=== PATIENT | male | born 1955 | race Caucasian/White ===

== ENCOUNTER 2023-09-09 13:28 | Inpatient (IN) | payer MEDICARE, MEDICAID ==
[~2023-09-09] VITALS: Ht 188 cm; Wt 98.4 kg
[2023-09-09 15:02] LABS: BASOPHILS % (AUTO) 0.4 % (0.0-2.0); EOSINOPHILS % (AUTO) 2.8 % (1.0-6.0); HEMATOCRIT 42.9 % (41-53); HEMOGLOBIN 14.4 g/dL (13.5-17.5); LYMPHOCYTES # (AUTO) 1.4 K/uL (1.0-4.8); LYMPHOCYTES % (AUTO) 32.4 % (22.0-44.0); MEAN CORPUSCULAR HEMOGLOBIN 29.7 pg (26.0-34.0); MEAN CORPUSCULAR HGB CONC 33.4 G/dL (31.0-37.0); MEAN CORPUSCULAR VOLUME 89 fL (80-100); MONOCYTES # (AUTO) 0.5 K/uL (0.1-1.0); MONOCYTES % (AUTO) 12.1 % (2.0-9.0); NEUTROPHILS # (AUTO) 2.2 K/uL (1.8-7.7); NEUTROPHILS % (AUTO) 52.3 % (40.0-70.0); PLATELET COUNT (AUTO) 238 K/uL (150-450); RED BLOOD CELL COUNT(AUTO) 4.83 MIL/uL (4.50-5.90); RED CELL DISTRIBUTION WIDTH 13.3 % (11.5-14.5); WHITE BLOOD COUNT (AUTO) 4.3 K/uL (4.5-11.0)
[2023-09-09 15:12] LABS: ANION GAP 10 mmol/L (8-16); CALCIUM, TOTAL 9.8 mg/dL (8.8-10.5); CARBON DIOXIDE 29 mmol/L (22-29); CHLORIDE 103 mmol/L (98-107); GLOMERULAR FILTR. RATE CALC > 60 mL/min (>60); GLUCOSE,RANDOM 98 mg/dL (70-110); POTASSIUM 3.5 mmol/L (3.5-5.1); SODIUM SERUM 142 mmol/L (136-145); UREA NITROGEN, BLOOD 16 mg/dL (7-18)
[2023-09-09 15:57] LABS: ALCOHOL, BLOOD (SERUM) < 3 mg/dL (0-10)
[2023-09-09 16:25] LABS: COVID AG,FIA SOURCE NASAL SWAB
[2023-09-09 16:45] LABS: SARS-COV2 (COVID) ANTIGEN,FIA Negative (Negative)
[2023-09-09 16:53] LABS: TROPONIN I-HIGH SENSITIVITY 44 ng/L (<76)
[2023-09-09 17:01] LABS: AMMONIA < 10 umol/L (11-32)
[2023-09-09 19:19] LABS: PH,URINE DRUG SCREEN 5.5 (5.0-8.0)
[2023-09-09 20:07] LABS: ALCOHOL, URINE DRUG SCREEN NEGATIVE (NEGATIVE); AMPHET/METH SCREEN,URINE NEGATIVE (NEGATIVE); BARBITURATE SCREEN, URINE NEGATIVE (NEGATIVE); BENZODIAZEPINES SCREEN,URINE NEGATIVE (NEGATIVE); CANNABINOID SCREEN,URINE POSITIVE (NEGATIVE); COCAINE SCREEN,URINE NEGATIVE (NEGATIVE); METHADONE SCREEN, URINE NEGATIVE (NEGATIVE); OPIATE SCREEN,URINE NEGATIVE (NEGATIVE); PHENCYCLIDINE SCREEN,URINE NEGATIVE (NEGATIVE)
[2023-09-10 09:48] LABS: APPEARANCE,URINE TURBID (CLEAR); COLOR,URINE YELLOW (YELLOW); GLUCOSE, URINE (UA) TRACE mg/dL (NEGATIVE); LEUKOCYTE ESTERASE ,URINE NEGATIVE (NEGATIVE); NITRATE,URINE NEGATIVE (NEGATIVE); OCCULT BLOOD,URINE NEGATIVE (NEGATIVE); PH,URINE 5.5 (5.0-8.0); PROTEIN,URINE 30-70 mg/dL (NEGATIVE); SPECIFIC GRAVITIY, URINE 1.033 (1.003-1.030); UROBILINOGEN,URINE <=1.0 mg/dL (<=1.0)
[2023-09-10 09:50] LABS: BILIRUBIN,URINE SMALL (NEGATIVE)
[2023-09-10 09:59] LABS: AMORPHOUS SEDIMENT,UR Moderate /LPF (None Seen); BACTERIA,URINE Few /HPF (None Seen); CALCIUM OXALATE CRYSTALS,UR Moderate /LPF (None Seen); RBC,URINE 0-2 /HPF (0-2); SQUAMOUS EPITHELIAL CELL,UR Rare /LPF (None Seen); WBC,URINE 0-2 /HPF (0-5)
[2023-09-10] MEDS ORDERED: LORazepam 2 MG TABLET PO PRN (11:15)
[2023-09-11 09:56] LABS: EOSINOPHILS % (AUTO) 4.3 % (1.0-6.0); HEMATOCRIT 44.5 % (41-53); HEMOGLOBIN 14.9 g/dL (13.5-17.5); LYMPHOCYTES # (AUTO) 1.5 K/uL (1.0-4.8); MEAN CORPUSCULAR HEMOGLOBIN 29.8 pg (26.0-34.0); MEAN CORPUSCULAR HGB CONC 33.5 G/dL (31.0-37.0); MEAN CORPUSCULAR VOLUME 89 fL (80-100); MONOCYTES # (AUTO) 0.5 K/uL (0.1-1.0); MONOCYTES % (AUTO) 9.9 % (2.0-9.0); NEUTROPHILS # (AUTO) 2.4 K/uL (1.8-7.7); NEUTROPHILS % (AUTO) 52.8 % (40.0-70.0); PLATELET COUNT (AUTO) 237 K/uL (150-450); RED BLOOD CELL COUNT(AUTO) 5.01 MIL/uL (4.50-5.90); RED CELL DISTRIBUTION WIDTH 13.6 % (11.5-14.5); WHITE BLOOD COUNT (AUTO) 4.6 K/uL (4.5-11.0)
[2023-09-11 10:06] LABS: ANION GAP 8 mmol/L (8-16); CALCIUM, TOTAL 9.9 mg/dL (8.8-10.5); CARBON DIOXIDE 29 mmol/L (22-29); CHLORIDE 105 mmol/L (98-107); CREATININE 0.99 mg/dL (0.60-1.30); GLOMERULAR FILTR. RATE CALC > 60 mL/min (>60); GLUCOSE,RANDOM 89 mg/dL (70-110); POTASSIUM 4.1 mmol/L (3.5-5.1); SODIUM SERUM 142 mmol/L (136-145); UREA NITROGEN, BLOOD 17 mg/dL (7-18)
[2023-09-12] MEDS ORDERED: CALCIUM CARBONATE 500 MG CHEWABLE TABLET CHEW PRN (13:45)
[2023-09-12 15:09] VITALS: BP 105/74; PULSE 96; RESP 18; TEMP 97.2
[2023-09-12] MEDS: ATORVASTATIN CALCIUM 40 MG TABLET PO SCH (17:40)
[2023-09-12] MEDS: PrednisoLONE ACETATE 1% 5 ML OPHTHALMIC SUSPENSION OD SCH (17:42)
[2023-09-12] MEDS: MULTIVITAMINS WITH MINERALS, THERAPEUTIC TABLET PO SCH (17:45)
[2023-09-12] MEDS: TAMSULOSIN HCL 0.4 MG CAPSULE PO SCH (17:45)
[2023-09-12] MEDS: CLOPIDOGREL BISULFATE 75 MG TABLET PO SCH (17:45)
[2023-09-12] MEDS: ASPIRIN 81 MG CHEWABLE TABLET PO SCH (17:45)
[2023-09-12 20:21] VITALS: BP 135/75; PULSE 88; RESP 18; TEMP 97.6; O2SAT 98
[2023-09-12 20:25] VITALS: BP 135/75; PULSE 88; RESP 20; TEMP 97.6
[2023-09-12] MEDS: MELATONIN 5 MG TABLET PO SCH (20:39)
[2023-09-13] MEDS: AmLODIPine BESYLATE 10 MG TABLET PO SCH (09:00)
[2023-09-13 09:51] VITALS: RESP 18
[2023-09-13] MEDS: ESCITALOPRAM OXALATE 10 MG TABLET PO SCH (10:45)
[2023-09-13] MEDS: RisperiDONE 1 MG TABLET PO SCH (17:24)
[2023-09-13 20:15] VITALS: BP 132/76; PULSE 88; RESP 18; TEMP 97.4; O2SAT 98
[2023-09-13] MEDS: MELATONIN 5 MG TABLET PO SCH (21:00)
[2023-09-14 08:32] VITALS: BP 110/69; PULSE 74; RESP 18; TEMP 97.6; O2SAT 98
[2023-09-14] MEDS ORDERED: ESCITALOPRAM OXALATE 10 MG TABLET PO SCH (09:00)
[2023-09-14 21:37] VITALS: BP 119/71; PULSE 67; RESP 17; TEMP 97.5; O2SAT 98
[2023-09-15 09:52] VITALS: BP 130/73; PULSE 71; RESP 18; TEMP 98; O2SAT 97
[2023-09-15 20:48] VITALS: RESP 18
[2023-09-16] MEDS ORDERED: MAG HYDROX/ALUMINUM HYD/SIMETH ES 30 ML SUSPENSION UDCUP PO PRN (06:30)
[2023-09-16] MEDS ORDERED: GuaiFENesin/D-METHORPHAN [SUGAR-FREE] 200-20MG/10 ML SYRUP UDCUP PO PRN (06:30)
[2023-09-16] MEDS ORDERED: DOCUSATE SODIUM 100 MG CAPSULE PO PRN (06:30)
[2023-09-16] MEDS ORDERED: CloNIDine HCL 0.1 MG TABLET PO PRN (06:30)
[2023-09-16] MEDS ORDERED: ONDANSETRON HCL 4 MG TABLET PO PRN (06:30)
[2023-09-16] MEDS ORDERED: ACETAMINOPHEN 325 MG TABLET PO PRN (06:30)
[2023-09-16] MEDS ORDERED: NICOTINE 14 MG/24 HOUR PATCH TD PRN (06:30)
[2023-09-16] MEDS ORDERED: ALBUTEROL SULFATE HFA 90 MCG/PUFF 8 GM INHALER IH PRN (06:30)
[2023-09-16] MEDS ORDERED: PETROLATUM,WHITE 28 GM JELLY TP PRN (06:30)
[2023-09-16] MEDS ORDERED: MAGNESIUM HYDROXIDE SUSPENSION 30 ML UDCUP PO PRN (06:30)
[2023-09-16] MEDS: LOPERAMIDE HCL 2 MG CAPSULE PO PRN (06:35)
[2023-09-16 08:12] VITALS: BP 117/63; PULSE 79; RESP 18; TEMP 97.7; O2SAT 97
[2023-09-16 21:31] VITALS: BP 110/68; PULSE 93; RESP 18; TEMP 97.6; O2SAT 97
[2023-09-16] MEDS: ZOLPIDEM TARTRATE 10 MG TABLET PO PRN (22:34)
[2023-09-17 08:16] VITALS: BP 122/84; PULSE 94; RESP 17; TEMP 96.4; O2SAT 97
[2023-09-17 09:41] LABS: BASOPHILS % (AUTO) 0.5 % (0.0-2.0); EOSINOPHILS % (AUTO) 2.3 % (1.0-6.0); HEMATOCRIT 39.9 % (41-53); HEMOGLOBIN 13.6 g/dL (13.5-17.5); LYMPHOCYTES # (AUTO) 1.2 K/uL (1.0-4.8); MEAN CORPUSCULAR HGB CONC 34.1 G/dL (31.0-37.0); MEAN CORPUSCULAR VOLUME 88 fL (80-100); MONOCYTES # (AUTO) 0.7 K/uL (0.1-1.0); MONOCYTES % (AUTO) 12.4 % (2.0-9.0); NEUTROPHILS # (AUTO) 3.9 K/uL (1.8-7.7); NEUTROPHILS % (AUTO) 64.8 % (40.0-70.0); PLATELET COUNT (AUTO) 163 K/uL (150-450); RED BLOOD CELL COUNT(AUTO) 4.53 MIL/uL (4.50-5.90); RED CELL DISTRIBUTION WIDTH 13.5 % (11.5-14.5)
[2023-09-17 09:50] LABS: HEMOGLOBIN A1C 5.8 % (3.8-5.6)
[2023-09-17 10:06] LABS: ALANINE AMINOTRANSFERASE 20 U/L (12-78); ALBUMIN 2.8 g/dL (3.4-5.0); ALKALINE PHOSPHATASE 71 U/L (46-116); ANION GAP 9 mmol/L (8-16); ASPARTATE AMINOTRANSFERASE 20 U/L (15-37); BILIRUBIN,TOTAL 0.9 mg/dL (0.1-1.0); CALCIUM, TOTAL 9.5 mg/dL (8.8-10.5); CARBON DIOXIDE 30 mmol/L (22-29); CHLORIDE 103 mmol/L (98-107); CREATININE 1.04 mg/dL (0.60-1.30); GLOMERULAR FILTR. RATE CALC > 60 mL/min (>60); GLUCOSE,RANDOM 103 mg/dL (70-110); POTASSIUM 3.7 mmol/L (3.5-5.1); SODIUM SERUM 142 mmol/L (136-145); THYROID STIMULATING HORMONE 4.44 uIU/mL (0.36-3.74); TOTAL PROTEIN, SERUM 6.4 g/dL (6.4-8.2); UREA NITROGEN, BLOOD 12 mg/dL (7-18)
[2023-09-17 23:32] VITALS: BP 121/64; PULSE 74; RESP 18; TEMP 97.5; O2SAT 96
[2023-09-18 08:47] VITALS: BP 122/73; PULSE 75; RESP 17; TEMP 98; O2SAT 96
[2023-09-18 20:01] VITALS: RESP 18; TEMP 97.1
[2023-09-18 20:17] VITALS: RESP 18
[2023-09-19 09:36] VITALS: BP 113/54; PULSE 64; RESP 19; TEMP 97.6
[2023-09-19] MEDS: ERGOCALCIFEROL (VIT D2) 50,000 UNITS [1,250 MCG] CAPSULE PO SCH (09:47)
[2023-09-19] MEDS: QUEtiapine FUMARATE 100 MG TABLET PO PRN (12:26)
[2023-09-19] MEDS: IBUPROFEN 400 MG TABLET PO PRN (12:26)
[2023-09-19 20:35] VITALS: BP 121/77; PULSE 76; RESP 18; TEMP 98.1; O2SAT 98
[2023-09-20 07:43] LABS: ANION GAP 8 mmol/L (8-16); CALCIUM, TOTAL 9.5 mg/dL (8.8-10.5); CARBON DIOXIDE 30 mmol/L (22-29); CHLORIDE 103 mmol/L (98-107); CHOL/HDL RATIO 2.4 (4.2-7.3); CHOLESTEROL 104 mg/dL (131-200); CREATININE 0.95 mg/dL (0.60-1.30); GLOMERULAR FILTR. RATE CALC > 60 mL/min (>60); GLUCOSE,RANDOM 82 mg/dL (70-110); HDL CHOLESTEROL 44 mg/dL (40-60); LDL CHOL (CALC.) 44 mg/dL (0-130); POTASSIUM 3.4 mmol/L (3.5-5.1); SODIUM SERUM 141 mmol/L (136-145); TRIGLYCERIDES 81 mg/dL (15-150); UREA NITROGEN, BLOOD 14 mg/dL (7-18)
[2023-09-20 08:15] VITALS: BP 111/58; PULSE 67; RESP 17; TEMP 97.7; O2SAT 100
[2023-09-20 21:35] VITALS: BP 137/64; PULSE 80; RESP 18; TEMP 97.8; O2SAT 97
[2023-09-21 08:10] VITALS: BP 118/65; PULSE 79; RESP 17; TEMP 98.3; O2SAT 96
[2023-09-21 20:05] VITALS: BP 121/77; PULSE 70; RESP 18; TEMP 97.9; O2SAT 97
[2023-09-22 08:51] VITALS: BP 108/60; PULSE 95; RESP 17; TEMP 97.8; O2SAT 99
[2023-09-22 20:36] VITALS: RESP 18
[2023-09-23 08:33] VITALS: BP 114/64; PULSE 62; RESP 18; TEMP 97.8; O2SAT 98
[2023-09-23 20:12] VITALS: BP 112/77; PULSE 60; RESP 18; TEMP 98.1; O2SAT 98
[2023-09-24 08:35] VITALS: BP 96/55; PULSE 63; RESP 18; TEMP 97.8; O2SAT 97
[2023-09-24 20:35] VITALS: BP 106/62; PULSE 85; RESP 18; TEMP 97.7; O2SAT 97
[2023-09-24 23:15] VITALS: RESP 18
[2023-09-25 09:54] VITALS: BP 106/58; PULSE 70; RESP 17; TEMP 97.2; O2SAT 98
[2023-09-25 20:12] VITALS: BP 105/70; PULSE 74; RESP 18; TEMP 97.1; O2SAT 99
[2023-09-26 09:38] VITALS: BP 110/52; PULSE 76; RESP 17; TEMP 97.8; O2SAT 98
[2023-09-26 20:40] VITALS: BP 104/71; PULSE 72; RESP 18; TEMP 98.1; O2SAT 98
[2023-09-27 12:47] VITALS: BP 148/84; PULSE 68; RESP 18; TEMP 96.8; O2SAT 96
[2023-09-27 21:20] VITALS: BP 107/59; PULSE 85; RESP 18; TEMP 98.1; O2SAT 97
[2023-09-27 21:26] VITALS: BP 107/59; PULSE 85; RESP 18; TEMP 98.1; O2SAT 97
[2023-09-27 22:26] VITALS: RESP 18
[2023-09-28 08:24] VITALS: BP 112/63; PULSE 84; RESP 18; TEMP 97.7; O2SAT 98
[2023-09-28 20:32] VITALS: BP 104/45; PULSE 85; RESP 18; TEMP 97.1; O2SAT 98
[2023-09-29 09:03] VITALS: BP 96/59; PULSE 60; RESP 17; TEMP 97.2; O2SAT 97
[2023-09-29 20:19] VITALS: BP 105/72; PULSE 66; RESP 18; TEMP 97.9
[2023-09-30 09:03] VITALS: BP 96/59; PULSE 68; RESP 17; TEMP 98; O2SAT 86
[2023-09-30 20:28] VITALS: RESP 18
[2023-10-01 09:51] VITALS: BP 100/57; PULSE 60; RESP 18; TEMP 97.7; O2SAT 97
[2023-10-01 20:02] VITALS: BP 102/77; PULSE 64; RESP 18; TEMP 97.4; O2SAT 98
[2023-10-02 10:31] VITALS: BP 105/74; PULSE 64; RESP 18; TEMP 97.9; O2SAT 98
[2023-10-02 21:40] VITALS: RESP 18
[2023-10-03 08:56] VITALS: BP 99/69; PULSE 80; RESP 17; TEMP 98
[2023-10-03] MEDS ORDERED: ASPI-1450 PO (14:54)
[2023-10-03] MEDS ORDERED: PREDAOS OD (14:54)
[2023-10-03] MEDS ORDERED: MULT-1303 PO (14:54)
[2023-10-03] MEDS ORDERED: MELA5TAB40 PO (14:54)
[2023-10-03] MEDS ORDERED: AMLO-258 PO (14:54)
[2023-10-03] MEDS ORDERED: ERGO500054 PO (14:54)
[2023-10-03] MEDS ORDERED: ATOR40TA28 PO (14:54)
[2023-10-03] MEDS ORDERED: CLOP75TA60 PO (14:54)
[2023-10-03] MEDS ORDERED: TAMS0.4C94 PO (14:54)
[2023-10-03] MEDS ORDERED: RISP-31 PO (14:54)
[2023-10-03] MEDS ORDERED: ESCI-8 PO (14:54)
== END 2023-10-03 17:22 | DRG 885 ==
LOC: EMS 14:09 → EDH 09-12 10:10 → 3EX 09-12 16:40
PROVIDERS: ADMIT Psychiatry & Neurology Psychiatry; ATTEND Psychiatry & Neurology Psychiatry
PROC: GZHZZZZ Group Psychotherapy (ICD-10-PCS; principal; 2023-09-13)
PROC: GZ52ZZZ Individual Psychotherapy, Cognitive (ICD-10-PCS; 2023-09-13)
DX: F33.3 Major depressive disorder, recurrent, severe with psychotic symptoms (principal); I11.0 Hypertensive heart disease with heart failure; E78.00 Pure hypercholesterolemia, unspecified; I50.9 Heart failure, unspecified; Z20.822 Contact with and (suspected) exposure to COVID-19; I25.10 Atherosclerotic heart disease of native coronary artery without angina pectoris; F12.10 Cannabis abuse, uncomplicated; D64.9 Anemia, unspecified; Z95.1 Presence of aortocoronary bypass graft; Z95.0 Presence of cardiac pacemaker; Z86.73 Personal history of transient ischemic attack (TIA), and cerebral infarction without residual deficits; Z79.899 Other long term (current) drug therapy; Z88.0 Allergy status to penicillin; Z91.018 Allergy to other foods
CPT/HCPCS: 70450; 71045; 80048; 80053; 80061; 80307; 81001; 82140; 83036; 84132; 84484; 85025; 87081; 93005; G0378; G0480; Q9967; 36415-L1; 36415-TC